=== PATIENT | female | born 1985 | race Caucasian/White ===

== ENCOUNTER → 2017-06-30 14:28 | Outpatient (POV) | payer MEDICAID, SELFPAY | PROVIDERS: Family Provider Internal Medicine Adolescent Medicine; PCP Internal Medicine Adolescent Medicine; Visit Provider Specialist | DX: G56.03 Carpal tunnel syndrome, bilateral upper limbs (principal) | CPT/HCPCS: 95886; 95910 ==

== ENCOUNTER 2021-01-18 21:30 | Emergency (ER) | payer MEDICAID, SELFPAY ==
[2021-01-18 21:32] VITALS: BP 132/92; PULSE 98; RESP 16; TEMP 36.6; O2SAT 97; BMI 25.8
--- NOTE | 2021-01-18 21:48 | XR_ITS ---
PROCEDURE INFORMATION: Exam: XR Right Elbow Exam date and time: 01/18/2021 9:48 PM Age: 35 years old Clinical indication: Pain; Patient HX: Strained right elbow pulling on a board. Shielded. ; Additional info: Injury TECHNIQUE: Imaging protocol: XR Right elbow. Views: 3 or more views. COMPARISON: CR WRISTCMRT XR wrist RT min 3V 09/06/2017 5:44 PM FINDINGS: Bones/joints: Normal. Soft tissues: Normal. IMPRESSION: No acute findings.
--- NOTE | 2021-01-18 21:59 | HMH.EDUPEXT ---
ED Disposition Clinical Impression: Lateral epicondylitis of right elbow Disposition: Home, Self-Care Condition on Discharge: Good Instructions: DI for Lateral Epicondylitis (Tennis Elbow) Additional Instructions: fluids and use meds and see ortho /pcp for follow up Prescriptions: predniSONE [Prednisone 20mg Tab] 20 mg PO BID #10 tab Transmission Status: Pending to [facility] Referrals: Toy Neville MD [Primary Care Provider] - Paresh Katz JR, MD [Physician] - - Critical Care Critical Care Time: No Attestation: On 01/18/21, the high probability of a clinically significant, sudden or life threatening deterioration of the following system(s) required my full and direct attention, intervention and personal management. The time I documented below is in addition to time spent performing reported procedures but includes the following listed in this critical care notation. Medical Decision Making - Medical Records Medical records reviewed: Yes: I reviewed the patient's medical records. - Meng Inquiry Pt receiving controlled substance: No Vital Signs: 01/18/21 21:32 Temperature 97.9 F Temperature Source Oral Pulse Rate [Left] 98 H Respiratory Rate 16 Blood Pressure [Left Arm] 132/92 H Blood Pressure Mean [Left Arm] 105 02 Sat by Pulse Oximetry 97 Oxygen Delivery Method Room Air Orders (Tests/Meds): ORDERS Category Date Time Status Elbow XR right minimum 3 views [XR elbow RT min 3V] Exams 01/18/21 21:48 Ordered Stat - Radiology Data #1 Image(s): Elbow Image Reviewed: Yes I reviewed the patient's radiology image Preliminary Findings: No Fracture Seen Medical Decision Narrative: acute rt tennis elbow - has clinical findings and neg xray Upper Extremity HPI - General Chief Complaint: Extremity Injury, Upper Stated Complaint: AO 01/18 injured R elbow Time Seen by Provider: 01/18/21 21:59 Mode of Arrival: Ambulatory Source of Information: Patient, Medical Record Limitations: No Limitations Description of Symptoms (Recalled from ER Triage Doc. by RN): pt reports that she had an injury to her right elbow, unable to perform full range of motion also unable to lift anything with the right arm. pt states there is a pain 5/10 but spikes to a 10 with a stabbing pain - History of Present Illness HPI narrative: acute rt elbow pain over the last few days complaint: injury to: right, elbow Onset (ago): day(s) Other Extremity Injury: Right: elbow Other injuries: none Handedness: right Place: home Severity: moderate Context: other (no injury) Associated symptoms: denies other symptoms - Related Data Previous Rx's Medication Instructions Recorded predniSONE [Prednisone 20mg 20 mg PO BID #10 tab 01/18/21 Tab] Allergies Allergy/AdvReac Type Severity Reaction Status Date / Time Penicillins [PENICILLINS] Allergy Intermediate I-RASH Verified 08/31/18 13:59 [facility] History - Hepatitis A Screen Drug use history?: No High risk sexual behaviors?: No History of sexually transmitted infection?: No Currently employed?: No Childcare worker?: No Do you have indoor plumbing?: Yes Do you have electricity?: Yes Attestation statement:: This patient has been screened for Hepatitis A risk factors. I have reviewed the patient's past medical history: Yes Laterality Cases: Bilateral: Tonsillectomy - Social History Smoking Status: Current every day smoker Tobacco Type: cigarettes # Packs/Day (cigarettes): 1 Alcohol Intake: never Occupational Status: other ROS Obtained: Yes All systems reviewed & no additional complaints - Constitutional Constitutional: Denies fever(s) - Eyes Eyes: Denies change in vision - ENT Ears, Nose, Mouth, and Throat: Denies sore throat - Cardiovascular Cardiovascular: Denies chest pain - Respiratory Respiratory: Denies shortness of breath - Gastrointestinal Gastrointestingal: Denies: abdominal pain - Ge
[2021-01-18 22:22] VITALS: BP 132/92; PULSE 88; RESP 16; TEMP 36.6; O2SAT 98
== END 2021-01-18 22:25 | disposition home or self-care (01) ==
PROVIDERS: Emergency Provider Emergency Medicine; PCP Internal Medicine Adolescent Medicine
DX: M77.11 Lateral epicondylitis, right elbow (principal); F17.210 Nicotine dependence, cigarettes, uncomplicated; Z88.0 Allergy status to penicillin
CPT/HCPCS: 73080; 99282

== ENCOUNTER 2022-09-12 04:34 | Emergency (ER) | payer MEDICAID, SELFPAY ==
[2022-09-12 04:48] VITALS: BP 170/106; PULSE 100; O2SAT 99
[2022-09-12 04:54] VITALS: BP 163/109; PULSE 101; RESP 18; TEMP 36.6; O2SAT 100; BMI 28.2
--- NOTE | 2022-09-12 05:04 | HMH.EDABDPAI ---
Discharge Plan Disposition Patient Disposition: Home, Self-Care Condition: Good Prescriptions Prescriptions: New ibuprofen 600 mg tablet 600 mg PO Q6H PRN (Reason: pain) Qty: 40 0RF acetaminophen [Tylenol 8 Hour] 650 mg tablet extended release 650 mg PO Q8H PRN (Reason: fever or pain) Qty: 30 0RF Referrals Follow up/Referrals: Juan R Smith MD [Staff Physician] - 3 days (Call and follow-up as an outpatient with Dr. Donahue) Provider,Referral, [Primary Care Provider] - See instructions Activity Restrictions/Add. Instructions Additional Instructions/Restrictions: You had pain on your right side of the abdomen after intercourse. There is a ruptured ovarian cyst on the right. There is good blood flow to the ovaries so there is no torsion. I am writing for some ibuprofen and Tylenol for pain and follow-up with Dr. Donahue your [employer] as an outpatient Clinical Impressions Clinical Impression: Ovarian cyst Instructions Patient Instructions: DI for Acute Abdominal Pain Discharge ED Provider: Judi Ryan Abdominal Pain HPI General Chief Complaint: Abdominal Pain Stated Complaint: Abdominal pain Time Seen by Provider: 09/12/22 04:37 Mode of Arrival: Ambulatory Source of Information: Patient Limitations: No Limitations Description of Symptoms (Recalled from ER Triage Doc. by RN): pt states while having vaginal intercourse about an hour ago she started having stabbing pains in her vagina and RLQ. pt states this has happened in the past when having ovarian cysts rupture. pain is stabbing in nature and 6/10 while sitting. pt also reports trying ICE last night for the first time. pt denies any other drug use. History of Present Illness HPI narrative: Patient is a 37-year female who is here secondary to severe lower right lower quadrant pain and suprapubic pain. Patient stated that she was having intercourse with her significant other and developed severe pain. Patient stated that the pain was so bad that the intercourse had to be stopped. Patient describes the pain as 10 out of 10. She has had ruptured ovarian cyst in the past. She said it felt similar to this. No vaginal bleeding no discharge. No urinary symptoms. No fever or chills. No GI symptoms of constipation or diarrhea. This occurred acutely in the process of having MD complaint: abdominal pain Onset (ago): minute(s) Consistency: constant Location: suprapubic Severity: severe Severity scale (1-10): >10 Quality: stabbing and sharp Radiation: RLQ Migration to: RLQ Relieving factors: nothing Exacerbating factors: nothing Associated symptoms: nausea and chills Related Data LMP (females 10-50): unknown Previous Rx's Medication Instructions Recorded acetaminophen 650 mg 650 mg PO Q8H PRN fever or pain 09/12/22 tablet,extended release (Tylenol 8 #30 tabs Hour) ibuprofen 600 mg tablet 600 mg PO Q6H PRN pain #40 tabs 09/12/22 Allergies Allergy/AdvReac Type Severity Reaction Status Date / Time Penicillins [PENICILLINS] Allergy Intermediate I-RASH Verified 09/12/22 04:58 [facility] Disclaimer: The information contained in this section may have been updated after the patient was seen, as this information can be updated by other users. Social History Smoking Status: Current every day smoker tobacco type: cigarettes packs per day: 1 alcohol intake: never current occupational status: other Travel in the last 8 weeks: None ROS Obtained: Yes All systems reviewed & no additional complaints except as documented Gastrointestinal Gastrointestingal: Reports abdominal pain Physical Exam General General appearance: alert and in distress Head Head exam: atraumatic, normocephalic and normal inspection Eye Eye exam: Present normal appearance, PERRL and EOMI; Absent scleral icterus or conjunctival redness ENT ENT exam: Present normal exam, normal oropharynx and mucous membrane
[2022-09-12 05:09] LABS: Microscopic, Urine URINE MICROSCOPIC (MICROSCOPIC)
[2022-09-12 05:17] LABS: Appearance,Urine CLEAR (Clear); Bilirubin,Urine Negative (Negative); Blood, Urine TRACE-I (Negative); Color,Urine YELLOW (Yellow); Glucose,Urine (UA) Negative (Negative); Ketones,Urine Negative (Negative); Leukocyte Esterase,Urine Negative (Negative); Nitrate,Urine Negative (Negative); Protein,Urine Negative (Negative); Specific Gravity, Urine 1.025 (1.005-1.030); Urobilinogen,Urine 0.2 EU/dl (0.2)
[2022-09-12 05:27] LABS: Urine Pregnancy, HCG Qual. Negative (Negative)
[2022-09-12 05:34] LABS: Bacteria,Urine 3+ /lpf
--- NOTE | 2022-09-12 05:39 | CT_ITS ---
PROCEDURE INFORMATION: Exam: CT Abdomen And Pelvis With Contrast Exam date and time: 09/12/2022 5:48 AM Age: 37 years old Clinical indication: Abdominal pain; Localized; Lower; Prior surgery; Surgery date: 6+ months; Surgery type: C section, umbilical and hiatal hernia repairs, cholecystectomy; Additional info: Abdomen pelvic TECHNIQUE: Imaging protocol: Computed tomography of the abdomen and pelvis with contrast. Radiation optimization: All CT scans at this facility use at least one of these dose optimization techniques: automated exposure control; mA and/or kV adjustment per patient size (includes targeted exams where dose is matched to clinical indication); or iterative reconstruction. Contrast material: ISOVUE; Contrast volume: 75 ml; Contrast route: IV; REPORTING DATA: Count of CT and Cardiac NM exams in prior 12 months: This patient has received 0 known CTs and 0 known cardiac nuclear medicine studies in the 12 months prior to the current study. [facility] w con 08/31/2018 2:05 PM FINDINGS: Pancreaticohepatobiliary: Liver: Biliary ductal dilation without an obstructive abnormality likely related to cholecystectomy. No discrete hepatic mass or abnormality. Gallbladder: Cholecystectomy clips in the gallbladder fossa. Pancreas: Normal in size normal in size and attenuation without peripancreatic fluid or obvious mass. Spleen: Normal in size and attenuation. . Genitourinary: Adrenal gland: No adrenal mass. Kidneys: Both kidneys are unremarkable without hydronephrosis. Urinary bladder: Partially distended urinary bladder. Uterus/ovaries: Normal-sized uterus with LEFT fallopian tube clip. Hypervascular RIGHT corpus luteal cyst. Trace amount of free fluid in the pelvis. . Gastrointestinal: Bowel: Colon contains a moderate amount of fecal matter. A few colonic diverticula. Note is made of a small hiatal hernia. Prominent air and fluid-filled loops of small bowel likely within normal limits. No free intraperitoneal air or fluid collection. Appendix: A normal APPENDIX is visualized. . Other findings: Aorta: Atherosclerotic disease of the aorta without evidence of aneurysm. Lymph nodes: No bulky lymph node enlargement. IMPRESSION: Nonemergent/incidental findings as described without any acute abdominopelvic abnormality.
[2022-09-12 05:43] LABS: Barbiturates Screen,Urine Negative ng/ml (<200)
[2022-09-12 05:44] LABS: Basophils # 0.1 K/mm3 (0-0.2); Basophils % 1.1 % (0.1-2.0); Eosinophils # 0.4 K/mm3 (0.0-0.4); Eosinophils % 4.5 % (0.1-12.0); Hematocrit 45.4 % (37.0-47.0); Hemoglobin 14.8 g/dL (12.2-16.2); Lymphocytes # 2.8 K/mm3 (0.7-4.5); Lymphocytes % 34.7 % (10-50); Mean Corpuscular HGB Conc 32.5 g/dL (31.8-35.4); Mean Corpuscular Hemoglobin 29.6 pg (27.0-31.2); Mean Corpuscular Volume 91.1 fl (81-99); Monocytes # 0.5 K/mm3 (0.1-1.0); Neutrophils # 4.4 K/mm3 (1.8-7.8); Neutrophils % 53.7 % (37.0-80.0); Platelet Count 280 K/mm3 (142-424); Red Blood Count 4.98 M/mm3 (4.20-5.40); Red Cell Distribution Width 13.4 % (11.5-17.5); White Blood Count 8.1 K/mm3 (4.8-10.8)
[2022-09-12 05:44] LABS: Benzodiazepines Screen,Urine Negative ng/ml (<200); Cannabinoid Screen,Urine Negative ng/ml (<50)
[2022-09-12 05:45] LABS: Cocaine Screen,Urine Negative ng/ml (<300)
[2022-09-12 05:46] LABS: Methadone Screen,Urine Negative ng/ml (<300); Phencyclidine Screen,Urine Negative ng/ml (<25)
[2022-09-12 05:47] LABS: Opiate Screen,Urine Negative ng/ml (<300)
[2022-09-12 05:51] LABS: Activated Partial Thrombo Time 25.5 seconds (22.8-30.6); Prothrombin Time 9.8 seconds (10.1-12.5)
[2022-09-12 05:56] LABS: Chloride 103 mmol/L (98-107); Potassium 3.8 mmoL/L (3.5-5.1); Sodium 140 mmol/L (136-145)
[2022-09-12 05:59] LABS: Alanine Aminotransferase 30 U/L (12-78); Albumin Level 4.3 g/dl (3.5-5.0); Albumin/Globulin Ratio 1.2 (1.1-1.8); Alkaline Phosphatase 76 U/L (38-126); Anion Gap 13.8 mEq/L (5-15); Aspartate Amino Transferase 31 U/L (14-36); Bilirubin,Total 0.2 mg/dl (0.2-1.3); Blood Urea Nitrogen 14 mg/dl (7-17); Calcium 9.1 mg/dl (8.4-10.2); Carbon Dioxide 27 mmol/L (22.0-30.0); Creatinine Clearance Estimated 137 mL/min (50-200); Estimated Glomerular Filt Rate 94 ml/min (>60); GFR (African American) 113 ML/MIN (>60); Globulin 3.6 g/dL (1.3-3.2); Glucose 76 mg/dl (74-100); Lactic Acid 0.9 mmol/L (0.7-2.1); Lipase 65 U/L (23-300); Total Protein,Serum 7.9 g/dl (6.3-8.2)
--- NOTE | 2022-09-12 06:36 | US_ITS ---
PROCEDURE INFORMATION: Exam: US Pelvis, Transvaginal, US Duplex Artery and Vein of the Reproductive Organs, Complete Exam date and time: 09/12/2022 6:57 AM Age: 37 years old Clinical indication: Vaginal pain; Additional info: Right lower quadrant pain TECHNIQUE: Imaging protocol: Real-time transvaginal pelvic ultrasound with image documentation. Transvaginal imaging was used for better evaluation of the endometrium, adnexa, and/or cervix. Real-time duplex ultrasound scan of the arterial and venous flow of the abdominal and/or reproductive organs with B-mode, color Doppler flow and spectral waveform analysis with image documentation. Exam focused on the region of clinical concern. Complete exam. Duplex exam was performed to evaluate for vascular conditions. COMPARISON: CT ABDOMEN PELVIS W CON 09/12/2022 5:48 AM FINDINGS: Uterus: Measures approximately 6.6 x 3.3 x 4.3 cm. Nabothian cyst in the region of the cervix. Endometrial stripe thickness: Endometrial thickness is approximately 4 mm. Small amount of anechoic endometrial fluid and a focal cystic area in the region of the fundus measuring 1.3 x 0.7 cm. Right ovary/adnexa: Measures approximately 6.0 mL. RIGHT ovarian corpus luteal cyst/follicle measuring approximately 1.6 x 1.5 cm. Left ovary/adnexa: Measures approximately 7.2 mL. Intraperitoneal space: No discernible adnexal mass or abnormality. Small amount of free fluid within the pelvis. Other findings: Doppler examination of the ovaries with pulsed wave and color images was performed which demonstrate arterial/venous waveforms within normal limits. IMPRESSION: 1. Endometrial fluid and focal cystic change in the region of the uterine fundus consistent with postoperative/post ablation changes. 2. Normal ovaries demonstrating blood flow on Doppler. 3. Small amount of physiologic free fluid in the pelvis likely due to a ruptured ovarian cyst/follicle.
--- NOTE | 2022-09-12 06:57 | PC.NURSE ---
pt to u/s via wheelchair with SO and u/s tech
--- NOTE | 2022-09-12 07:20 | PC.NURSE ---
pt return from u/s, rad staff gave verbal report to KELLY SOUSA
--- NOTE | 2022-09-12 07:21 | PC.NURSE ---
pt back to room from u/s
--- NOTE | 2022-09-12 07:25 | PC.NURSE ---
KELLY SOUSA at discussing POC and results with pt.
[2022-09-12 07:40] VITALS: BP 163/96; PULSE 79; RESP 16; TEMP 36.8; O2SAT 98
[2022-09-16 16:34] LABS: Amphetamine Positive (.); Amphetamine (GC/MS) >3000 ng/mL (Cutoff=500); Amphetamines Positive (.); Methamphetamine Positive (.); Methamphetamine (GC/MS) >3000 ng/mL (Cutoff=500)
== END 2022-09-12 07:42 | disposition home or self-care (01) ==
PROVIDERS: Emergency Provider Emergency Medicine
DX: N83.291 Other ovarian cyst, right side (principal); R10.31 Right lower quadrant pain; R10.2 Pelvic and perineal pain; N94.10 Unspecified dyspareunia; F17.210 Nicotine dependence, cigarettes, uncomplicated; B96.89 Other specified bacterial agents as the cause of diseases classified elsewhere
CPT/HCPCS: 74177; 76830; 80053; 80305; 80324; 81001; 81025; 83605; 83690; 85025; 85610; 85730; 87086; 87088; 87186; 96361; 96374; 96375; 99285; J0131; Q9967

== ENCOUNTER 2022-11-06 16:26 | Emergency (ER) | payer MEDICAID, SELFPAY ==
[2022-11-06 16:27] VITALS: BP 156/99; PULSE 110; RESP 20; TEMP 36.9; O2SAT 98; BMI 27.7
--- NOTE | 2022-11-06 16:42 | HMH.EDGENADL ---
Discharge Plan Disposition Patient Disposition: Home, Self-Care Condition: Good Prescriptions Prescriptions: No Action ibuprofen 600 mg tablet 600 mg PO Q6H PRN (Reason: pain) Qty: 40 0RF acetaminophen [Tylenol 8 Hour] 650 mg tablet extended release 650 mg PO Q8H PRN (Reason: fever or pain) Qty: 30 0RF Referrals Follow up/Referrals: Provider,Referral, [Primary Care Provider] - See instructions Activity Restrictions/Add. Instructions Additional Instructions/Restrictions: Continue to take Benadryl at home. Please use [id number] steroid cream in the affected areas. You were given a dose of oral steroids that will last the next 1 to 2 days. If your symptoms are continuing to worsen at that time please return emergency department or see your PCP. Clinical Impressions Clinical Impression: Contact dermatitis Instructions Patient Instructions: Contact Dermatitis Discharge ED Provider: Rufus Pereira General Adult HPI General Chief complaint: Allergic Reaction Stated complaint: rash all over body Time Seen by Provider: 11/06/22 16:32 History of Present Illness HPI narrative: 37-year-old female reportedly previously healthy presents pruritic rash and erythema on the arms and abdomen. She reports that she was weed whacking and doing yard work in the [place] a couple of days ago and since that time has had worsening redness and erythema and bumps over starting on the arms and now on the abdomen. Denies any intraoral lesions, denies any throat swelling, denies any nausea vomiting or diarrhea. Reports that she is allergic to poison tessa and thinks she could have been exposed. She has been taking Benadryl at home without improvement. Related Data Previous Rx's Medication Instructions Recorded acetaminophen 650 mg 650 mg PO Q8H PRN fever or pain 09/12/22 tablet,extended release (Tylenol 8 #30 tabs Hour) ibuprofen 600 mg tablet 600 mg PO Q6H PRN pain #40 tabs 09/12/22 Allergies Allergy/AdvReac Type Severity Reaction Status Date / Time Penicillins [PENICILLINS] Allergy Intermediate I-RASH Verified 09/12/22 04:58 [facility] Disclaimer: The information contained in this section may have been updated after the patient was seen, as this information can be updated by other users. Social History Smoking Status: Former smoker alcohol intake: never current occupational status: other Travel in the last 8 weeks: None ROS Obtained: Yes All systems reviewed & no additional complaints except as documented Physical Exam General General appearance: alert and in no apparent distress Head Head exam: atraumatic and normocephalic Eye Eye exam: Present normal appearance, PERRL and EOMI ENT ENT exam: Present normal oropharynx and normal external ear exam Neck Neck exam: Present normal inspection and full ROM Chest Chest inspection: Present normal inspection and symmetric chest wall rise; Absent tenderness Respiratory Respiratory exam: Present normal lung sounds bilaterally; Absent respiratory distress Cardiovascular Cardiovascular exam: Present regular rate and normal rhythm Abdominal Exam Abdominal exam: Present soft; Absent distention, tenderness or guarding Extremities Exam Extremities exam: Present normal inspection; Absent edema or joint swelling Back Exam Back exam: Present normal inspection; Absent tenderness Neurological Exam Neurological exam: Present alert and oriented X3; Absent motor sensory deficit Psychiatric Psychiatric exam: Present normal affect and normal mood Skin Skin exam: Present other (Generalized erythematous papular eruption over the medial arms and thoracoabdominal area.) Lymphatic Lymphatic Findings: no adenopathy Medical Decision Making Medical Records Medical records reviewed: Yes I reviewed the patient's medical records. Meng Inquiry Pt receiving controlled substance: No Meng was queried for this patient
[2022-11-06 17:15] VITALS: BP 145/81; PULSE 92; RESP 19; TEMP 36.7; O2SAT 98
== END 2022-11-06 17:18 | disposition home or self-care (01) ==
PROVIDERS: Emergency Provider Emergency Medicine
DX: L25.9 Unspecified contact dermatitis, unspecified cause (principal); Z87.891 Personal history of nicotine dependence
CPT/HCPCS: 99283